=== PATIENT | female | born 1995 ===

== ENCOUNTER 2017-08-29 14:49 | Inpatient (IN) ==
[2017-08-29] MEDS ORDERED: ONDANSETRON 4 MG/2 ML VIAL IV PRN (15:11)
[2017-08-29] MEDS ORDERED: MEPERIDINE 50 MG/1 ML VIAL IV PRN (15:11)
[2017-08-29] MEDS: LACTATED RINGERS 1,000 ML IV SCH ×2 (15:20→21:00)
[2017-08-29] MEDS ORDERED: DINOPROSTONE VAG GEL 10 MG SYRINGE VAG ONE (16:00)
[2017-08-29 16:03] LABS: Basophils % 0.4 % (0.0-0.8); Eosinophils % 0.1 % (0.00-10.9); Hematocrit 35.7 VOL% (35.7-47.0); Hemoglobin 12.2 GM/DL (12.0-16.0); Immature Granulocytes % 0.8 %; Immature Granulocytes Absolute 0.06 #; Lymphocytes # 1.6 10*3/uL (1.4-4.0); Lymphocytes % 20.3 % (21.3-54.2); Mean Corpuscular HGB Conc 34.2 GM/DL (32-36); Mean Corpuscular Hemoglobin 30 PG (27-34); Mean Corpuscular Volume 87.5 FL (87-102); Mean Platelet Volume 9.3 FL (9.6-12.0); Monocytes # 0.5 10*3/uL (0.11-0.8); Neutrophils # 5.7 10*3/uL (1.4-7.4); Neutrophils % 72.4 % (38.7-73.9); Platelet Count 184 T/CUMM (130-400); Red Blood Count 4.08 MC/CUMM (3.8-5.5); Red Cell Distribution Width 13.5 % (9.3-17.3); White Blood Count 7.8 T/CUMM (4-12)
[2017-08-29 16:32] LABS: Alanine Aminotransferase < 9 U/L (13-56); Albumin 2.5 G/DL (3.4-5.0); Alkaline Phosphatase 246 U/L (45-117); Aspartate Amino Transferase 11 U/L (0-37); Blood Urea Nitrogen 5 MG/DL (7-18); Calcium 8.6 MG/DL (8.5-10.1); Glucose 118 MG/DL (74-106); Osmolality,Calculated 276.4 MOS/KG (273-304); Potassium 3.2 MMOL/L (3.5-5.1); Sodium 140 MMOL/L (136-145); Total Protein 6.7 G/DL (6.4-8.3)
--- NOTE | 2017-08-29 17:57 | OB/GYN History & Physical ---
History of Present Illness Chief complaint: In for elective induction of labor due to term . History of present illness: Ms. Thomas is a 22 year old female who was a primigravida. She presents to the labor department for elective induction of labor due to term . The risk and benefits of been thoroughly discussed with this patient significant other, plan of care has been discussed with Dr. Guthrie and all parties are in agreement plan. The patient received her care through the [facility] in the [facility]. She received routine care her course was uneventful with the exception of gestational diabetes. She did receive nonstress test and was followed closely at our office. labs: She is O+, rubella is immune, RPR is nonreactive, hepatitis B is negative , HIV is negative, and GBS cultures negative. Review of systems is negative with exception of above. Home Medications Medication Instructions Recorded Confirmed Type Vits #90/Iron Fum/FA 1 tablet PO DAILY 08/04/17 08/29/17 History [ Formula Tablet] Allergies Allergy/AdvReac Type Severity Reaction Status Date / Time No Known Allergies Allergy Verified 08/04/17 13:57 12 point system: reviewed and no additional remarkable complaints except as stated Medical,Surgical,& Family Hx - Medical History Medical History: noncontributory - Surgical History Orthopedic Surgeries: Surgical HX of;: Orthopedic Surgery (Knee surgery in 2010) - Family History Family History: Reports;: Family Cancer (MOTHER), Family Diabetes (Parents), Family Hypertension (Grandfather) - Social History Smoking Status: Never smoker Frequency of Alcohol Use: None Type of Drug Use: None Marital Status: Single Lives With:: Parent Functional capacity: independent ambulation 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 - Constitutional Vitals: Vital Signs Temp Pulse Resp BP Pulse Ox 08/29/17 15:17 97.3 F L 91 H 20 116/70 99 General appearance: no acute distress - Antepartum / Post Antepartum Exam Cervix - Dilatation: 1 cm Effacement: 50% Station: -2 Rupture: Intact Presentation: Vertex Heart Rate: 140s Breast: bilateral: normal Abdomen obstetrics: Present: bowel sounds normal Vagina: Present: normal moisture, discharge Uterus exam: Present: enlarged Anus/Rectum: Present: normal perianal skin - Respiratory Respiratory exam: Present: clear to auscultation bilaterally - Cardiovascular Cardiovascular exam: Present: regular rate and rhythm - GI/Abdominal GI/Abdominal exam: Present: normal bowel sounds, soft - Extremities Exam Extremities exam: Present: normal inspection - Neurological Exam Neurological exam: Present: alert, oriented X3 - Psychiatric Psychiatric exam: Present: normal affect, normal mood - Skin Skin exam: Present: normal color, warm Assessment and Plan (1) 39 weeks gestation of Status: Acute Assessment and plan: Admit IV fluids Prostin gel per protocol IV Pitocin per protocol if indicated Epidural anesthesia if desired Artificial rupture membranes when appropriate Internal monitors if indicated Anticipate Current Visit: Yes Results - Labs CBC & BMP: 08/29/17 15:26 08/29/17 15:26
[2017-08-29] MEDS ORDERED: FAMOTIDINE 20 MG/2 ML VIAL IV ONE (20:08)
[2017-08-29] MEDS ORDERED: ePHEDrine 50 MG/ML AMP IV PRN (20:08)
[2017-08-29] MEDS ORDERED: CITRIC ACID/SODIUM CITRATE 30 ML UDCUP PO ONE (20:08)
[2017-08-29] MEDS ORDERED: fentaNYL 2 MCG/ROPIV 0.2% EPID 150 ML EPIDURAL SCH (20:09)
[2017-08-29 23:07] LABS: Apearance,Urine CLEAR (Clear); Bilirubin,Urine Negative (Negative); Blood, Urine Negative (Negative); Glucose,Urine (UA) Negative (Negative); Ketones,Urine 20 mg/dL (Negative); Mucus,Urine Occasional /LPF (Occasional); Nitrite,Urine Negative (Negative); Protein,Urine Negative; Squamous Epithelial Cell,Urine Occasional /HPF (0-10); Urine Color Yellow (Yellow); Urine Specific Gravity 1.011 (1.001-1.035); Urine Urobilinogen < 2.0 EU/DL (0.2-1.0)
[2017-08-30] MEDS ORDERED: OXYTOCIN/LR 20 UNIT/1,000 ML BAG IV ONE ×2 (00:25→19:42)
[2017-08-30] MEDS ORDERED: OXYTOCIN/LR 20 UNIT/1,000 ML BAG IV SCH (02:00)
[2017-08-30] MEDS ORDERED: miSOPROStol 200 MCG TABLET ONE (14:26)
[2017-08-30] MEDS ORDERED: LIDOCAINE 1% 50 ML VIAL ONE (14:26)
[2017-08-30] MEDS ORDERED: OXYTOCIN 10 UNIT/ML VIAL ONE (17:41)
[2017-08-30] MEDS ORDERED: OXYTOCIN 10 UNIT/ML VIAL IM ONE (17:41)
[2017-08-30] MEDS ORDERED: OXYTOCIN/LR 30 UNIT/1,000 ML BAG IV ONE (17:44)
[2017-08-30] MEDS: LACTATED RINGERS 1,000 ML IV SCH (17:52)
[2017-08-30] MEDS ORDERED: METHYLERGONOVINE 0.2 MG/1 ML AMP ONE (18:37)
[2017-08-30 18:57] LABS: Cord Venous Blood PCO2 36.9 MMHG; Cord Venous Blood PO2 32.2
[2017-08-30] MEDS ORDERED: MORPHINE 10 MG/10 ML VIAL ONE (18:59)
--- NOTE | 2017-08-30 19:39 | Operative Note ---
Date of procedure: 08/30/17 Procedure: Preoperative diagnosis: Failure to progress, CPD Postoperative diagnosis: Same Anesthesia:[] Regional Estimated blood loss: [] 350 Surgeon: Dr. Guthrie Findings: [] Male infant born at 18 28, weight was 8 lbs. 10 oz., Apgars was 8 at 1 minute 9 at 5 minutes, cord blood and cord gas obtained, occiput posterior with large amount of caput Complications: None Procedure: Low transverse section The patient was taken to the operating suite heart tones were obtained prior to and after regional anesthesia was obtained. She was placed in supine position her abdomen was prepped and draped in usual manner for major abdominal surgery. Through an abdominal incision the skin, subcutaneous, fascial layer and peritoneal the abdomen was entered. The bladder flap was created and a low transverse incision was made.. Fluid was clear and normal amount X, Apgars, the placenta was delivered and sent to lab for further evaluation. Injected with intrauterine Pitocin. The first layer of the uterus was closed with #1 Vicryl in a continuous locking manner. Close to imbricate the first layer with #1 Vicryl. The peritoneum was approximated with #2-0 Vicryl.[] All the last sponges and instruments were accounted for -2.) #2-0 Vicryl. Fascia was approximated with #0-0 Maxon.. The skin was approximated with tati. She tolerated procedure well and was taken to recovery room in stable condition. Surgeon / Physician: Ernie Guthrie Results - Labs CBC & BMP: 08/29/17 15:26 08/29/17 15:26 Discharge Plan - Discharge Medications No Action Vits #90/Iron Fum/FA [ Formula Tablet] 1 tablet PO DAILY - Follow Up or Referral - Forms/Instructions
[2017-08-30] MEDS ORDERED: ACETAMINOPHEN 325 MG TABLET PO PRN (19:42)
[2017-08-30] MEDS ORDERED: RHO(D) IMMUNE GLOBULIN 300 MCG SYRINGE IM ONE (19:42)
[2017-08-30] MEDS ORDERED: ONDANSETRON 4 MG/2 ML VIAL IV PRN (19:42)
[2017-08-30] MEDS ORDERED: LACTATED RINGERS 1,000 ML IV SCH (20:00)
--- NOTE | 2017-08-30 23:32 | Anesthesia Post-Op ---
Anesthesia Post OP - Post Ansesthetic Evaluation Patient seen in post op: Yes Resp: within normal limits CV: within normal limits Mental: within normal limits Temp: within normal limits [id number]: within normal limits Nausea and Vomiting: within normal limits Pain: within normal limits
[2017-08-30] MEDS: DOCUSATE SODIUM 100 MG CAPSULE PO SCH (23:43)
[2017-08-31] MEDS: MULTIVITAMIN (PRENATAL) TABLET PO SCH (08:46)
[2017-08-31] MEDS: DOCUSATE SODIUM 100 MG CAPSULE PO SCH ×2 (08:46→21:19)
[2017-08-31] MEDS: MAGNESIUM HYDROXIDE SUSP 30 ML UDCUP PO PRN ×2 (08:46→21:19)
[2017-08-31] MEDS: SIMETHICONE CHEW 80 MG TABLET PO PRN (08:46)
[2017-08-31 09:39] LABS: Basophils % 0.2 % (0.0-0.8); Eosinophils % 0.1 % (0.00-10.9); Hematocrit 28.3 VOL% (35.7-47.0); Immature Granulocytes % 0.7 %; Immature Granulocytes Absolute 0.09 #; Lymphocytes # 1.8 10*3/uL (1.4-4.0); Lymphocytes % 13.5 % (21.3-54.2); Mean Corpuscular HGB Conc 34.6 GM/DL (32-36); Mean Corpuscular Hemoglobin 30 PG (27-34); Mean Corpuscular Volume 87.9 FL (87-102); Mean Platelet Volume 9.7 FL (9.6-12.0); Monocytes # 1.2 10*3/uL (0.11-0.8); Neutrophils # 10.4 10*3/uL (1.4-7.4); Neutrophils % 76.5 % (38.7-73.9); Platelet Count 151 T/CUMM (130-400); Red Blood Count 3.22 MC/CUMM (3.8-5.5); Red Cell Distribution Width 13.5 % (9.3-17.3); White Blood Count 13.5 T/CUMM (4-12)
[2017-08-31 09:48] LABS: Hemoglobin 9.8 GM/DL (12.0-16.0)
--- NOTE | 2017-08-31 09:51 | OB/GYN Progress Note ---
Assessment and Plan (1) 39 weeks gestation of Status: Acute Assessment and plan: Admit IV fluids Prostin gel per protocol IV Pitocin per protocol if indicated Epidural anesthesia if desired Artificial rupture membranes when appropriate Internal monitors if indicated Anticipate Current Visit: Yes (2) Status post primary low transverse section Status: Acute Assessment and plan: Initiate routine orders. Current Visit: Yes [employer] - PN: Subj Interval history: Stable with no complaints. Bonding well with . Exam [employer] - Constitutional Vitals: Vital Signs Temp Pulse Resp BP Pulse Ox 08/31/17 07:25 98.7 F 110 H 18 124/72 98 08/31/17 04:00 97.8 F 103 H 18 113/56 98 08/31/17 01:10 97.6 F 99 H 18 130/68 98 08/31/17 00:10 97.8 F 99 H 18 127/74 98 08/31/17 00:00 97.3 F L 102 H 18 124/70 98 08/30/17 23:10 98.1 F 92 H 18 122/84 98 08/30/17 22:40 98.4 F 96 H 18 127/78 98 08/30/17 22:10 98.2 F 101 H 18 128/83 98 08/30/17 19:42 98.0 F 103 H 20 91/51 98 08/30/17 16:00 97.8 F 118 H 20 130/85 08/30/17 12:00 97.1 F L 80 20 119/80 100 General appearance: no acute distress - Antepartum / Post Post Exam Breast: bilateral: normal Abdomen obstetrics: Present: bowel sounds normal Vagina: Present: normal moisture, discharge (Light lochia rubra) Uterus exam: Present: enlarged (Fundus firm and midline) - Gyencological / Post Surgical Post Surgical Exam Lungs: bilateral: normal Chest: Normal S1, Normal S2 Extremities [employer]: Present: normal Abdomen obstetrics progress note: Present: normal appearance, soft Incision OB: Present: normal, intact - Respiratory Respiratory exam: Present: clear to auscultation bilaterally - Cardiovascular Cardiovascular exam: Present: regular rate and rhythm - GI/Abdominal GI/Abdominal exam: Present: normal bowel sounds, soft - Extremities Exam Extremities exam: Present: normal inspection - Neurological Exam Neurological exam: Present: alert, oriented X3 - Psychiatric Psychiatric exam: Present: normal affect, normal mood - Skin Skin exam: Present: normal color, warm Results - Labs CBC & BMP: 08/31/17 08:58 08/29/17 15:26
[2017-08-31] MEDS: FERROUS SULFATE 325 MG TABLET PO SCH ×2 (10:01→21:19)
[2017-08-31] MEDS: IBUPROFEN 800 MG TABLET PO PRN (10:46)
[2017-09-01] MEDS: IBUPROFEN 800 MG TABLET PO PRN (03:42)
[2017-09-01 07:22] VITALS: BP 101/71
[2017-09-01] MEDS: DOCUSATE SODIUM 100 MG CAPSULE PO SCH (08:56)
[2017-09-01] MEDS: SIMETHICONE CHEW 80 MG TABLET PO PRN (08:56)
[2017-09-01] MEDS: MULTIVITAMIN (PRENATAL) TABLET PO SCH (08:56)
[2017-09-01] MEDS: MAGNESIUM HYDROXIDE SUSP 30 ML UDCUP PO PRN (08:56)
[2017-09-01] MEDS: FERROUS SULFATE 325 MG TABLET PO SCH (08:56)
--- NOTE | 2017-09-01 09:29 | Discharge Summary ---
Hospital Course - Hospital Course Hospital Course: Ms. Thomas presented for elective induction of labor due to term . She had a trial of labor and at the end of her labor it was noted that she had CPD. In light of this the patient was taken for a primary section. She delivered a viable infant with no complications. She has followed a normal postop course and she has done well. Her bleeding is minimal with no odor. Her vital signs and lab values are stable. Her fundus is firm and midline. Her bowel sounds are positive. She has had normal bowel movement. She is bonding well with her . Contraception options has been discussed with this patient, she is unsure of a method at this time. She will be discharged home with prescriptions for pain and a follow-up appointment in our office. Diagnosis - Discharge Diagnosis (1) 39 weeks gestation of Status: Acute (2) Status post primary low transverse section Status: Acute Specialty Discharge - Follow Up or Referrals Follow up with: Ernie Guthrie MD [Physician] - 2 Weeks Discharge Plan - Discharge Data Disposition: Disch To Home/Self Care Condition at Discharge: Stable Discharge Diet: advance to your usual diet Activity: increase activity as tolerated, no lifting, no prolonged standing Hygiene: may shower Weight Bearing at Discharge: partial weight bearing Driving: not until seen by doctor Contact your physician if you experience:: fever over 101, Shortness of breath, pain uncontrolled by pain medications - Discharge Medications New Ferrous Sulfate Tab [Feosol Original Tab] 325 mg PO BID #60 tablet HYDROcodone/ACETAMIN 5-325 [[place] 5-325] 2 tablet PO Q6H PRN #30 tablet PRN Reason: Pain Severe (8-10) Ibuprofen Tab [Motrin Tab] 800 mg PO Q8H PRN #30 tablet PRN Reason: Pain Severe (8-10) No Action Vits #90/Iron Fum/FA [ Formula Tablet] 1 tablet PO DAILY - Follow Up or Referral Follow Up: Ernie Guthrie MD [Physician] - - Forms/Instructions Instructions: Section (DC), Perineal Care (DC), Bleeding (DC) Exam - Constitutional Vitals: Period Temp Pulse Resp BP Sys/Floyd Pulse Ox Last 24 Hr 96.7 F-98.3 F 76-108 18-20 101-134/64-89 96-98 General appearance: no acute distress - Respiratory Respiratory exam: Present: clear to auscultation bilaterally - Cardiovascular Cardiovascular exam: Present: regular rate and rhythm - GI/Abdominal GI/Abdominal exam: Present: normal bowel sounds, soft - Extremities Exam Extremities exam: Present: normal inspection - Neurological Exam Neurological exam: Present: alert, oriented X3 - Psychiatric Psychiatric exam: Present: normal affect, normal mood - Skin Skin exam: Present: normal color, warm Discharge Results Labs on day of discharge: Labs from last 24 hours 08/31/17 08:58 WBC 13.5 H D RBC 3.22 L D Hgb 9.8 L D Hct 28.3 L MCV 87.9 MCH 30 MCHC 34.6 RDW 13.5 Plt Count 151 MPV 9.7 Neut % (Auto) 76.5 H Lymph % (Auto) 13.5 L [place] % (Auto) 9.0 Eos % (Auto) 0.1 Baso % (Auto) 0.2 Neut # (Auto) 10.4 H Lymph # (Auto) 1.8 [place] # (Auto) 1.2 H Eos # (Auto) 0.0 Baso # (Auto) 0.0 Immature Gran % 0.7 Nucleated RBC % 0.0 Immature Gran # 0.09 Nucleated RBCs # 0.00 Immature Plt Fraction 0.0 DS: Provider Date of admission: 08/30/17 18:13 Primary care physician: Colby Cruz MD Attending physician on admission: Ernie Guthrie MD Consults: 08/29/17 15:12 Consult to Anesthesiology [CONS] Routine Consulting Provider: Reason for Anesthesiology: Epidural Consult Comment: Epidural for pain managment 08/30/17 19:42 Consult to Applications Programmer Analyst [CONS] Routine Consult Applications Programmer Analyst: Breast Feeding Discharging clinician: Daphne Godfrey CNM Expected date of discharge: 09/01/17
== END 2017-09-01 13:30 | disposition home or self-care (01) | DRG 540 ==
LOC: N.LDOUT 14:49 → N.LD 14:54 → N.OB 08-30 22:10
PROVIDERS: ADMIT Obstetrics & Gynecology; ATTEND Obstetrics & Gynecology
PROC: LDCSECT (ICD-10-PCS; 2017-08-30 18:05)

== ENCOUNTER 2020-04-17 08:46 | Inpatient (IN) ==
[2020-04-17] MEDS ORDERED: FAMOTIDINE 20 MG/2 ML VIAL IV ONE (09:57)
[2020-04-17] MEDS ORDERED: ceFAZolin 2,000 MG in PREMIX 1 EACH IV ONE (09:57)
[2020-04-17] MEDS ORDERED: CITRIC ACID/SODIUM CITRATE 30 ML UDCUP PO ONE (09:57)
[2020-04-17] MEDS ORDERED: LACTATED RINGERS 1,000 ML IV SCH ×2 (10:00→18:30)
[2020-04-17 10:24] LABS: Basophils % 0.4 % (0.0-0.8); Eosinophils % 0.4 % (0.00-10.9); Hematocrit 36.5 VOL% (35.7-47.0); Hemoglobin 11.8 GM/DL (12.0-16.0); Immature Granulocytes % 0.6 %; Immature Granulocytes Absolute 0.05 #; Lymphocytes # 2.1 10*3/uL (1.4-4.0); Lymphocytes % 25.7 % (21.3-54.2); Mean Corpuscular HGB Conc 32.3 GM/DL (32-36); Mean Corpuscular Volume 87.7 FL (87-102); Mean Platelet Volume 9.8 FL (9.6-12.0); Monocytes % 6.9 % (1.7-12.7); Platelet Count 196 T/CUMM (130-400); Red Blood Count 4.16 MC/CUMM (3.8-5.5); Red Cell Distribution Width 14.3 % (9.3-17.3)
[2020-04-17] MEDS ORDERED: OXYTOCIN/LR 30 UNIT/1,000 ML BAG IV ONE (10:31)
[2020-04-17] MEDS ORDERED: LACTATED RINGERS 1,000 ML IV ONE (10:31)
[2020-04-17 10:48] LABS: Albumin 2.7 G/DL (3.4-5.0); Bilirubin,Total 0.4 MG/DL (0.2-1.0); Calcium 9.3 MG/DL (8.5-10.1); Osmolality,Calculated 268.1 MOS/KG (273-304); Total Protein 7.7 G/DL (6.4-8.3)
[2020-04-17] MEDS ORDERED: OXYTOCIN 10 UNIT/ML VIAL IM ONE (11:00)
[2020-04-17 11:50] LABS: Apearance,Urine CLEAR (Clear); Bilirubin,Urine Negative (Negative); Blood, Urine Negative (Negative); Glucose,Urine (UA) Negative (Negative); Ketones,Urine Negative (Negative); Nitrite,Urine Negative (Negative); Protein,Urine Negative; RBC,Urine 1 /HPF (0-4); Squamous Epithelial Cell,Urine Occasional /HPF (0-10); Urine Color Yellow (Yellow); Urine Specific Gravity 1.005 (1.001-1.035); Urine Urobilinogen < 2.0 EU/DL (0.2-1.0); WBC,Urine 1 /HPF (0-6)
[2020-04-17] MEDS ORDERED: PHENYLEPHRINE 1 MG/10 ML SYRINGE IV ONE (16:08)
[2020-04-17] MEDS ORDERED: MORPHINE 10 MG/10 ML VIAL ONE (16:08)
[2020-04-17] MEDS ORDERED: ONDANSETRON 4 MG/2 ML VIAL ONE (16:09)
[2020-04-17] MEDS ORDERED: ROPIVACAINE 0.5% 30 ML VIAL ONE (16:19)
[2020-04-17 17:19] LABS: Cord Arterial Blood HCO3 20.6 MMOL/L
[2020-04-17] MEDS ORDERED: ACETAMINOPHEN 325 MG TABLET PO PRN (18:11)
[2020-04-17] MEDS ORDERED: MAGNESIUM HYDROXIDE SUSP 30 ML UDCUP PO PRN (18:11)
[2020-04-17] MEDS ORDERED: SIMETHICONE CHEW 80 MG TABLET PO PRN (18:11)
[2020-04-17] MEDS ORDERED: OXYTOCIN/LR 20 UNIT/1,000 ML BAG IV ONE (18:11)
[2020-04-17] MEDS ORDERED: RHO(D) IMMUNE GLOBULIN 300 MCG SYRINGE IM ONE (18:11)
[2020-04-17] MEDS: ONDANSETRON 4 MG/2 ML VIAL IV PRN (18:42)
[2020-04-18] MEDS: ceFAZolin 1,000 MG in SYRINGE 1 EACH IV SCH ×2 (00:20→08:20)
[2020-04-18] MEDS: ONDANSETRON 4 MG/2 ML VIAL IV PRN (01:10)
[2020-04-18 06:34] LABS: Basophils % 0.4 % (0.0-0.8); Eosinophils % 0.1 % (0.00-10.9); Hematocrit 31.7 VOL% (35.7-47.0); Hemoglobin 10.3 GM/DL (12.0-16.0); Immature Granulocytes % 0.4 %; Immature Granulocytes Absolute 0.03 #; Lymphocytes # 1.6 10*3/uL (1.4-4.0); Lymphocytes % 19.1 % (21.3-54.2); Mean Corpuscular HGB Conc 32.5 GM/DL (32-36); Mean Corpuscular Volume 86.1 FL (87-102); Mean Platelet Volume 9.5 FL (9.6-12.0); Monocytes % 8.3 % (1.7-12.7); Neutrophils % 71.7 % (38.7-73.9); Platelet Count 159 T/CUMM (130-400); Red Blood Count 3.68 MC/CUMM (3.8-5.5); Red Cell Distribution Width 13.8 % (9.3-17.3); White Blood Count 8.5 T/CUMM (4-12)
[2020-04-18] MEDS: DOCUSATE SODIUM 100 MG CAPSULE PO SCH ×2 (08:15→21:36)
[2020-04-18] MEDS: MULTIVITAMIN (PRENATAL) TABLET PO SCH (08:19)
[2020-04-18] MEDS: METOCLOPRAMIDE 10 MG TABLET PO SCH ×2 (08:19→18:03)
[2020-04-18] MEDS: IBUPROFEN 800 MG TABLET PO PRN (21:36)
[2020-04-19] MEDS: METOCLOPRAMIDE 10 MG TABLET PO SCH ×2 (00:01→05:33)
[2020-04-19] MEDS: IBUPROFEN 800 MG TABLET PO PRN (05:23)
[2020-04-19] MEDS: DOCUSATE SODIUM 100 MG CAPSULE PO SCH (09:03)
[2020-04-19] MEDS: MULTIVITAMIN (PRENATAL) TABLET PO SCH (09:03)
[2020-04-19 16:31] VITALS: BP 111/61
== END 2020-04-19 15:30 | disposition home or self-care (01) | DRG 540 ==
LOC: N.LDOUT 08:46 → N.LD 08:49 → N.OB 22:01
PROVIDERS: ADMIT Obstetrics & Gynecology; ATTEND Obstetrics & Gynecology
PROC: LDCSECT (ICD-10-PCS; 2020-04-17 15:00)

== ENCOUNTER 2021-05-22 08:27 | Inpatient (IN) ==
[2021-05-22] MEDS ORDERED: CITRIC ACID/SODIUM CITRATE 30 ML UDCUP PO ONE (08:46)
[2021-05-22] MEDS ORDERED: ceFAZolin 3,000 MG in SYRINGE 1 EACH IV ONE (08:46)
[2021-05-22] MEDS ORDERED: FAMOTIDINE 20 MG/2 ML VIAL IV ONE (08:46)
[2021-05-22] MEDS ORDERED: OXYTOCIN 10 UNIT/ML VIAL IM ONE (08:48)
[2021-05-22] MEDS ORDERED: OXYTOCIN/LR 30 UNIT/1,000 ML BAG IV ONE ×2 (08:48→13:15)
[2021-05-22] MEDS ORDERED: DEXAMETHASONE 4 MG/1 ML VIAL ONE (08:56)
[2021-05-22] MEDS ORDERED: ONDANSETRON 4 MG/2 ML VIAL ONE (08:56)
[2021-05-22] MEDS ORDERED: BUPIVACAINE SPINAL 0.75% 2 ML AMP SPINAL ONE (08:56)
[2021-05-22] MEDS ORDERED: miSOPROStoL 200 MCG TABLET ONE (09:08)
[2021-05-22] MEDS ORDERED: TRANEXAMIC ACID 1,000 MG/10 ML VIAL ONE (09:08)
[2021-05-22] MEDS ORDERED: OXYTOCIN/LR 20 UNIT/1,000 ML BAG IV ONE ×2 (09:09→12:05)
[2021-05-22] MEDS ORDERED: METHYLERGONOVINE 0.2 MG/1 ML AMP ONE (09:09)
[2021-05-22] MEDS ORDERED: CARBOPROST TROMETHAMINE 250 MCG/ML AMP IM ONE (09:10)
[2021-05-22] MEDS ORDERED: SODIUM CHLORIDE 0.9% 0 ML IV ONE (09:11)
[2021-05-22 09:17] LABS: Bilirubin,Urine Negative (Negative); Blood, Urine Negative (Negative); Glucose,Urine (UA) Negative (Negative); Ketones,Urine Negative (Negative); Mucus,Urine Occasional /LPF (Occasional); Nitrite,Urine Negative (Negative); Protein,Urine Negative; RBC,Urine 1 /HPF (0-4); Squamous Epithelial Cell,Urine Occasional /HPF (0-10); Urine Appearance CLEAR (Clear); Urine Color Yellow (Yellow); Urine Specific Gravity 1.019 (1.001-1.035)
[2021-05-22 09:19] LABS: Basophils % 0.4 % (0.0-0.8); Eosinophils # 0.1 10*3/uL (0.0-0.87); Eosinophils % 1.1 % (0.00-10.9); Hematocrit 35.3 VOL% (35.7-47.0); Hemoglobin 10.8 GM/DL (12.0-16.0); Immature Granulocytes % 0.7 %; Immature Granulocytes Absolute 0.06 #; Lymphocytes # 2.1 10*3/uL (1.4-4.0); Mean Corpuscular HGB Conc 30.6 GM/DL (32-36); Mean Corpuscular Volume 79.5 FL (87-102); Mean Platelet Volume 8.8 FL (9.6-12.0); Monocytes % 7.9 % (1.7-12.7); Neutrophils % 63.9 % (38.7-73.9); Platelet Count 277 T/CUMM (130-400); Red Blood Count 4.44 MC/CUMM (3.8-5.5); Red Cell Distribution Width 16.8 % (9.3-17.3); White Blood Count 8.2 T/CUMM (4-12)
[2021-05-22] MEDS: LACTATED RINGERS 1,000 ML IV SCH ×2 (09:21→09:43)
[2021-05-22 09:56] LABS: Alanine Aminotransferase < 9 U/L (13-56); Albumin 2.6 G/DL (3.4-5.0); Alkaline Phosphatase 214 U/L (45-117); Aspartate Amino Transferase 11 U/L (0-37); Bilirubin,Total < 0.39 MG/DL (0.2-1.0); Blood Urea Nitrogen 10 MG/DL (7-18); Calcium 8.6 MG/DL (8.5-10.1); Carbon Dioxide 22 MMOL/L (21-32); Estimated Glom Filtration Rate 149 ML/MIN; Glucose 82 MG/DL (74-106); Osmolality,Calculated 270.8 MOS/KG (273-304); Sodium 137 MMOL/L (136-145); Total Protein 7.2 G/DL (6.4-8.2)
[2021-05-22] MEDS ORDERED: PHENYLEPHRINE 1 MG/10 ML SYRINGE IV ONE (10:46)
[2021-05-22 11:29] LABS: Cord Venous Blood HCO3 23.2 MMOL/L; Cord Venous Blood PCO2 40.3 MMHG
[2021-05-22] MEDS ORDERED: ONDANSETRON 4 MG/2 ML VIAL IV PRN (12:05)
[2021-05-22] MEDS ORDERED: SIMETHICONE CHEW 80 MG TABLET PO PRN (12:05)
[2021-05-22] MEDS ORDERED: IBUPROFEN 800 MG TABLET PO PRN (12:05)
[2021-05-22] MEDS ORDERED: RHO(D) IMMUNE GLOBULIN 300 MCG SYRINGE IM ONE (12:05)
[2021-05-22] MEDS ORDERED: ACETAMINOPHEN 325 MG TABLET PO PRN (12:05)
[2021-05-22] MEDS ORDERED: KETOROLAC 30 MG/1 ML VIAL IV PRN (12:25)
[2021-05-22] MEDS ORDERED: ACETAMINOPHEN 500 MG TABLET PO PRN (12:25)
[2021-05-22] MEDS ORDERED: LACTATED RINGERS 1,000 ML IV SCH (12:30)
[2021-05-22] MEDS ORDERED: METHYLERGONOVINE 0.2 MG/1 ML AMP IM ONE (13:21)
[2021-05-22 14:39] LABS: Hematocrit 28.1 VOL% (35.7-47.0); Hemoglobin 8.6 GM/DL (12.0-16.0)
[2021-05-22] MEDS ORDERED: SODIUM CHLORIDE 0.9% 1,000 ML IV PRN ×2 (14:49→23:45)
[2021-05-22] MEDS: KETOROLAC 30 MG/1 ML VIAL IV SCH (21:39)
[2021-05-22] MEDS: ACETAMINOPHEN 500 MG TABLET PO SCH (21:42)
[2021-05-22] MEDS: DOCUSATE SODIUM 100 MG CAPSULE PO SCH (21:43)
[2021-05-22 23:23] LABS: Hematocrit 22.7 VOL% (35.7-47.0); Hemoglobin 7.2 GM/DL (12.0-16.0)
[2021-05-23] MEDS: ACETAMINOPHEN 500 MG TABLET PO SCH ×2 (03:45→10:00)
[2021-05-23] MEDS: KETOROLAC 30 MG/1 ML VIAL IV SCH ×2 (03:45→10:04)
[2021-05-23 06:10] LABS: Hematocrit 24.9 VOL% (35.7-47.0); Hemoglobin 7.7 GM/DL (12.0-16.0)
[2021-05-23] MEDS: MULTIVITAMIN (PRENATAL) TABLET PO SCH (10:01)
[2021-05-23] MEDS: DOCUSATE SODIUM 100 MG CAPSULE PO SCH ×2 (10:02→20:14)
[2021-05-23] MEDS: METOCLOPRAMIDE 10 MG TABLET PO SCH (20:14)
[2021-05-23] MEDS: MAGNESIUM HYDROXIDE SUSP 30 ML UDCUP PO PRN (20:14)
[2021-05-23] MEDS: FERROUS SULFATE 325 MG TABLET PO SCH (20:15)
[2021-05-23] MEDS ORDERED: IBUPROFEN 800 MG TABLET PO PRN (23:52)
[2021-05-24] MEDS: oxyCODONE/ACETAMINOPHEN 5-325 MG TABLET PO PRN ×2 (01:12→12:58)
[2021-05-24] MEDS: METOCLOPRAMIDE 10 MG TABLET PO SCH (03:39)
[2021-05-24 07:44] VITALS: BP 116/75
[2021-05-24] MEDS: MULTIVITAMIN (PRENATAL) TABLET PO SCH (08:37)
[2021-05-24] MEDS: FERROUS SULFATE 325 MG TABLET PO SCH (08:37)
[2021-05-24] MEDS: DOCUSATE SODIUM 100 MG CAPSULE PO SCH (08:37)
[2021-05-24] MEDS: MAGNESIUM HYDROXIDE SUSP 30 ML UDCUP PO PRN (08:37)
== END 2021-05-24 13:00 | disposition home or self-care (01) | DRG 540 ==
LOC: N.LD 08:27 → N.OB 05-23 10:30
PROVIDERS: ADMIT Obstetrics & Gynecology; ATTEND Obstetrics & Gynecology
PROC: LDCSECT (ICD-10-PCS; 2021-05-22 09:00)

== ENCOUNTER 2022-11-09 10:24 | Inpatient (IN) ==
[2022-11-09] MEDS ORDERED: CITRIC ACID/SODIUM CITRATE 30 ML UDCUP PO ONE (10:32)
[2022-11-09] MEDS ORDERED: TRANEXAMIC ACID 1,000 MG in SODIUM CHLORIDE 0.9% 100 ML IV PRN (10:32)
[2022-11-09] MEDS ORDERED: FAMOTIDINE 20 MG/2 ML VIAL IV ONE (10:32)
[2022-11-09] MEDS ORDERED: ceFAZolin 2,000 MG/50 ML DUPLEX IV ONE (10:32)
[2022-11-09] MEDS ORDERED: miSOPROStoL 200 MCG TABLET RECTAL PRN (10:32)
[2022-11-09] MEDS ORDERED: OXYTOCIN/LR 20 UNIT/1,000 ML BAG IV ONE ×2 (10:32→15:52)
[2022-11-09] MEDS ORDERED: CARBOPROST TROMETHAMINE 250 MCG/ML AMP IM PRN (10:32)
[2022-11-09] MEDS ORDERED: METHYLERGONOVINE 0.2 MG/1 ML AMP IM PRN (10:32)
[2022-11-09] MEDS ORDERED: LACTATED RINGERS 1,000 ML IV SCH ×2 (11:00→16:00)
[2022-11-09 11:01] LABS: Basophils % 0.3 % (0.0-0.8); Eosinophils % 0.3 % (0.00-10.9); Hematocrit 33.6 VOL% (35.7-47.0); Hemoglobin 10.1 GM/DL (12.0-16.0); Immature Granulocytes % 0.5 %; Immature Granulocytes Absolute 0.03 #; Lymphocytes # 1.9 10*3/uL (1.4-4.0); Lymphocytes % 28.8 % (21.3-54.2); Mean Corpuscular HGB Conc 30.1 GM/DL (32-36); Mean Platelet Volume 8.6 FL (9.6-12.0); Monocytes # 0.5 10*3/uL (0.11-0.8); Monocytes % 7.1 % (1.7-12.7); Platelet Count 252 T/CUMM (130-400); Red Blood Count 4.48 MC/CUMM (3.8-5.5); Red Cell Distribution Width 19.1 % (9.3-17.3); White Blood Count 6.5 T/CUMM (4-12)
[2022-11-09 11:30] LABS: Albumin 2.8 G/DL (3.4-5.0); Bilirubin,Total 0.4 MG/DL (0.20-1.00); Calcium 8.8 MG/DL (8.5-10.1); Osmolality,Calculated 271.7 MOS/KG (273-304); Potassium 3.5 MMOL/L (3.5-5.1); Total Protein 7.5 G/DL (6.4-8.2)
[2022-11-09] MEDS ORDERED: miSOPROStoL 200 MCG TABLET ONE (12:58)
[2022-11-09] MEDS ORDERED: TRANEXAMIC ACID 1,000 MG/10 ML VIAL ONE (12:58)
[2022-11-09] MEDS ORDERED: METHYLERGONOVINE 0.2 MG/1 ML AMP ONE (12:59)
[2022-11-09] MEDS ORDERED: CARBOPROST TROMETHAMINE 250 MCG/ML AMP IM ONE (12:59)
[2022-11-09] MEDS ORDERED: OXYTOCIN 10 UNIT/ML VIAL IM ONE (13:00)
[2022-11-09] MEDS ORDERED: OXYTOCIN/LR 30 UNIT/1,000 ML BAG IV ONE ×2 (13:00→16:20)
[2022-11-09] MEDS ORDERED: ONDANSETRON 4 MG/2 ML VIAL ONE (14:34)
[2022-11-09] MEDS ORDERED: buprenorphine HCL 0.3 MG/ML VIAL ONE (14:34)
[2022-11-09] MEDS ORDERED: PHENYLEPHRINE 1 MG/10 ML SYRINGE IV ONE (14:34)
[2022-11-09] MEDS ORDERED: KETOROLAC 30 MG/1 ML VIAL ONE (15:05)
[2022-11-09] MEDS ORDERED: ACETAMINOPHEN INJ 1,000 MG/100 ML VIAL IV ONE (15:05)
[2022-11-09 15:35] LABS: Cord Arterial Blood HCO3 20.5 MMOL/L
[2022-11-09 15:39] LABS: Cord Venous Blood HCO3 22.1 MMOL/L; Cord Venous Blood PCO2 42.2 MMHG; Cord Venous Blood PO2 29.1
[2022-11-09] MEDS ORDERED: ACETAMINOPHEN 325 MG TABLET PO PRN (15:52)
[2022-11-09] MEDS ORDERED: RHO(D) IMMUNE GLOBULIN 300 MCG SYRINGE IM ONE (15:52)
[2022-11-09] MEDS ORDERED: IBUPROFEN 800 MG TABLET PO PRN (15:52)
[2022-11-09] MEDS ORDERED: SIMETHICONE CHEW 80 MG TABLET PO PRN (15:52)
[2022-11-09] MEDS ORDERED: MAGNESIUM HYDROXIDE SUSP 30 ML UDCUP PO PRN (15:52)
[2022-11-09] MEDS ORDERED: ONDANSETRON 4 MG/2 ML VIAL IV PRN (15:52)
[2022-11-09 15:55] LABS: Mucus,Urine Occasional /LPF (Occasional); RBC,Urine <1 /HPF (0-4); Squamous Epithelial Cell,Urine Occasional /HPF (0-10)
[2022-11-09 15:56] LABS: Bilirubin,Urine Negative (Negative); Blood, Urine Negative (Negative); Glucose,Urine (UA) Negative (Negative); Ketones,Urine 80 mg/dL (Negative); Nitrite,Urine Negative (Negative); Protein,Urine Negative (Negative); Urine Appearance Clear (Clear); Urine Color Yellow (Yellow); Urine pH 6.5 (4.5-8.0)
[2022-11-09] MEDS: DOCUSATE SODIUM 100 MG CAPSULE PO SCH (21:40)
[2022-11-09] MEDS: KETOROLAC 30 MG/1 ML VIAL IV SCH (22:51)
[2022-11-09] MEDS: ACETAMINOPHEN 500 MG TABLET PO SCH (22:52)
[2022-11-09 23:34] LABS: Basophils % 0.3 % (0.0-0.8); Eosinophils % 0.2 % (0.00-10.9); Hematocrit 27.1 VOL% (35.7-47.0); Hemoglobin 8.3 GM/DL (12.0-16.0); Immature Granulocytes % 0.3 %; Immature Granulocytes Absolute 0.03 #; Lymphocytes # 1.8 10*3/uL (1.4-4.0); Lymphocytes % 18.9 % (21.3-54.2); Mean Corpuscular HGB Conc 30.6 GM/DL (32-36); Mean Corpuscular Volume 75.3 FL (87-102); Mean Platelet Volume 8.9 FL (9.6-12.0); Monocytes # 0.8 10*3/uL (0.11-0.8); Monocytes % 8.3 % (1.7-12.7); Platelet Count 206 T/CUMM (130-400); Red Cell Distribution Width 18.7 % (9.3-17.3); White Blood Count 9.5 T/CUMM (4-12)
[2022-11-10 06:24] LABS: Basophils % 0.3 % (0.0-0.8); Eosinophils % 0.6 % (0.00-10.9); Hematocrit 25.4 VOL% (35.7-47.0); Hemoglobin 7.7 GM/DL (12.0-16.0); Immature Granulocytes % 0.4 %; Immature Granulocytes Absolute 0.03 #; Lymphocytes # 1.8 10*3/uL (1.4-4.0); Lymphocytes % 26.6 % (21.3-54.2); Mean Corpuscular HGB Conc 30.3 GM/DL (32-36); Mean Corpuscular Volume 75.1 FL (87-102); Monocytes # 0.6 10*3/uL (0.11-0.8); Monocytes % 9.1 % (1.7-12.7); Platelet Count 200 T/CUMM (130-400); Red Blood Count 3.38 MC/CUMM (3.8-5.5); Red Cell Distribution Width 18.8 % (9.3-17.3); White Blood Count 6.9 T/CUMM (4-12)
[2022-11-10] MEDS: KETOROLAC 30 MG/1 ML VIAL IV SCH ×2 (08:40→15:53)
[2022-11-10] MEDS: DOCUSATE SODIUM 100 MG CAPSULE PO SCH ×2 (08:40→22:00)
[2022-11-10] MEDS: METOCLOPRAMIDE 10 MG TABLET PO SCH ×2 (08:41→16:45)
[2022-11-10] MEDS: MULTIVITAMIN (PRENATAL) TABLET PO SCH (08:41)
[2022-11-10] MEDS: ACETAMINOPHEN 500 MG TABLET PO SCH ×2 (08:42→15:47)
[2022-11-11] MEDS: METOCLOPRAMIDE 10 MG TABLET PO SCH ×2 (01:00→04:25)
[2022-11-11 07:24] VITALS: BP 108/66
[2022-11-11] MEDS: DOCUSATE SODIUM 100 MG CAPSULE PO SCH (09:27)
[2022-11-11] MEDS: MULTIVITAMIN (PRENATAL) TABLET PO SCH (09:27)
== END 2022-11-11 11:55 | disposition home or self-care (01) | DRG 540 ==
LOC: N.LD 10:24 → N.OB 18:19
PROVIDERS: ADMIT Obstetrics & Gynecology; ATTEND Obstetrics & Gynecology
PROC: LDCSECT (ICD-10-PCS; 2022-11-09 15:00)